=== PATIENT | female | born 1995 | race Asian ===

== ENCOUNTER 2023-09-20 19:44 | Emergency (ER) | payer SELFPAY ==
[~2023-09-20] VITALS: Ht 160 cm; Wt 54.5 kg
[2023-09-20 20:20] VITALS: TEMP 98.6
[2023-09-20] MEDS: ACETAMINOPHEN 325 MG TABLET PO ONE (22:00)
[2023-09-20 22:43] VITALS: BP 110/74; PULSE 68; RESP 16
== END 2023-09-20 23:00 | disposition home or self-care (01) ==
LOC: EMS 19:45
DX: S13.4XXA Sprain of ligaments of cervical spine, initial encounter (principal); V89.2XXA Person injured in unspecified motor-vehicle accident, traffic, initial encounter; Y93.89 Activity, other specified; Y92.89 Other specified places as the place of occurrence of the external cause; Y99.8 Other external cause status
CPT/HCPCS: 72040; 99283